=== PATIENT | female | born 1995 | race Caucasian/White ===

== ENCOUNTER → 2016-03-28 | Outpatient (CLI) | payer OTHER ==
[2016-03-28 15:55] LABS: CH 31.4; CHCM 33.9; HCT 38.3 % (34.0-46.0); HDW 2.69; HGB 12.3 gm/dL (11.4-16.0); MCH 29.9 pg (25.0-35.0); MCHC 32.2 g/dL (31.0-37.0); Mean Platelet Volume 10.3; RBC 4.12 m/uL (3.80-5.40); RDW 14.4 % (11.5-15.5); WBC 10.3 k/uL (3.8-10.6)
[2016-03-28 16:15] LABS: Glucose 75 mg/dL (74-99); Non-African American GFR(MDRD) >60 (>60 ml/min/1.73 sqM)
[2016-03-28 16:47] LABS: Hepatitis B Surface Ag Index 0.05
[2016-03-30 03:59] LABS: HIV-1/HIV-2 Ab Screen NONREAC (NON REAC)
== END | disposition home or self-care (01) ==
LOC: LABWHC1 15:08
PROVIDERS: ATTEND Obstetrics & Gynecology
DX: O26.812 Pregnancy related exhaustion and fatigue, second trimester (principal); Z3A.00 Weeks of gestation of pregnancy not specified
CPT/HCPCS: 36415; 82565; 82947; 85027; 86762; 86780; 86850; 86900; 86901; 87340; 87389

== ENCOUNTER 2016-05-15 17:11 | Emergency (ER) | payer OTHER ==
[2016-05-15 17:15] VITALS: RESP 16
[2016-05-15] MEDS ORDERED: METOCLOPRAMIDE 5 MG/ML 2 ML VIAL IVP STA (18:50)
[2016-05-15] MEDS ORDERED: SODIUM CHLORIDE 0.9% 1,000 ML IV ONE (18:50)
--- NOTE | 2016-05-15 18:53 | ED ---
Nausea/Vomiting/Diarrhea HPI - General Chief complaint: Nausea/Vomiting/Diarrhea Stated complaint: vomiting (29 weeks gestation) Time Seen by Provider: 05/15/16 18:43 Source: patient, RN notes reviewed Mode of arrival: ambulatory Limitations: no limitations - History of Present Illness Initial comments: Patient is , 20-year-old female presents to the emergency room for evaluation of vomiting and diarrhea. Patient states around 1:00 this afternoon she began vomiting. Patient states she has been unable to keep any food or liquids down. Patient states she is about 29 weeks . Patient denies any complications during . Patient states she can still feel her baby moving. Patient denies abnormal vaginal discharge or vaginal bleeding. Patient denies abdominal pain. Patient denies recent travel outside of the country. Patient denies trying new foods. Patient states she had a few episodes of diarrhea today as well. Patient denies any fevers or chills. - Related Data Previous Rx's Medication Instructions Recorded Metoclopramide HCl [Reglan] 5 mg PO TID PRN #12 tablet 05/15/16 Allergies Allergy/AdvReac Type Severity Reaction Status Date / Time No Known Allergies Allergy Verified 05/15/16 18:47 Review of Systems ROS Statement: Those systems with pertinent positive or pertinent negative responses have been documented in the HPI. ROS Other: All systems not noted in ROS Statement are negative. Past Medical History Past Medical History: Asthma, Thyroid Disorder History of Any Multi-Drug Resistant Organisms: None Reported Past Surgical History: Appendectomy, Tonsillectomy Additional Past Surgical History / Comment(s): thyroid, breast cyst removed, Past Anesthesia/Blood Transfusion Reactions: No Reported Reaction Past Psychological History: No Psychological Hx Reported Smoking Status: Never smoker Past Alcohol Use History: None Reported Past Drug Use History: None Reported - Past Family History Mother Family Medical History: No Reported History General Exam - General Exam Comments Initial Comments: Sitting in exam room in no acute distress. Limitations: no limitations General appearance: alert, in no apparent distress Head exam: Present: atraumatic, normocephalic, normal inspection Eye exam: Present: normal appearance ENT exam: Present: normal exam Neck exam: Present: normal inspection Respiratory exam: Present: normal lung sounds bilaterally. Absent: respiratory distress Cardiovascular Exam: Present: regular rate, normal rhythm, normal heart sounds GI/Abdominal exam: Present: soft. Absent: tenderness, guarding Extremities exam: Present: normal inspection Back exam: Present: normal inspection Neurological exam: Present: alert, oriented X3, CN II-XII intact, normal gait Psychiatric exam: Present: normal affect, normal mood Skin exam: Present: warm, dry, intact, normal color. Absent: rash Course Vital Signs 05/15/16 05/15/16 17:13 20:40 Temperature 98.2 F 98.8 F Pulse Rate 61 72 Respiratory 16 16 Rate Blood Pressure 131/76 103/60 O2 Sat by Pulse 100 100 Oximetry Medical Decision Making - Medical Decision Making Patient is a 20-year-old female, presents the emergency room for evaluation of nausea, vomiting. Patient states she's feeling better after fluids and medications. Labs show no significant findings. Patient states she is feeling better like to be discharged home. heart tones 125-145 bpm. Return parameters discussed. Case discussed with Dr. Garcia. - Lab Data Result diagrams: 05/15/16 19:00 05/15/16 19:00 Lab Results 05/15/16 05/15/16 05/15/16 Range/Units 19:00 19:00 19:00 WBC 8.0 (3.8-10.6) k/uL RBC 3.89 (3.80-5.40) m/uL Hgb 12.1 (11.4-16.0) gm/dL Hct 36.0 (34.0-46.0) % MCV 92.4 (80.0-100.0) fL MCH 31.0 (25.0-35.0) pg MCHC 33.6 (31.0-37.0) g/dL RDW 14.0 (11.5-15.5) % Plt Count 188 (150-450) k/uL Neutrophils % 82 % Lymphocytes % 11 % Monocytes % 5 % Eosinophils % 0 % Basophils % 0 % Neutrophils # 6.6 (1.3-7.7) k/uL Lymphocytes # 0.9 L (1.0-4.8) k/uL Monocytes # 0.4 (0-1.0) k/uL Eosinophils # 0.0 (0-0.7) k/uL Basophils # 0.0 (0-0.2) k/uL Sodium 136 L (137-145) mmol/L Potassium 4.1 (3.5-5.1) mmol/L Chloride 105 (98-107) mmol/L Carbon Dioxide 23 (22-30) mmol/L Anion Gap 8 mmol/L BUN 9 (7-17) mg/dL Creatinine 0.52 (0.52-1.04) mg/dL Est GFR (MDRD) Af Amer >60 (>60 ml/min/1.73 sqM) Est GFR (MDRD) Non-Af >60 (>60 ml/min/1.73 sqM) Glucose 87 (74-99) mg/dL Calcium 8.5 (8.4-10.2) mg/dL Magnesium 1.9 (1.6-2.3) mg/dL Total Bilirubin 0.4 (0.2-1.3) mg/dL AST 26 (14-36) U/L ALT 27 (9-52) U/L Alkaline Phosphatase 78 (38-126) U/L Total Protein 6.7 (6.3-8.2) g/dL Albumin 3.7 (3.5-5.0) g/dL Amylase 82 (30-110) U/L Lipase 118 (23-300) U/L Urine Color Urine Appearance (Clear) Urine pH (5.0-8.0) Ur Specific [place] (1.001-1.035) Urine Protein (Negative) Urine Glucose (UA) (Negative) Urine Ketones (Negative) Urine Blood (Negative) Urine Nitrate (Negative) Urine Bilirubin (Negative) Urine Urobilinogen (<2.0) mg/dL Ur Leukocyte Esterase (Negative) Urine RBC (0-5) /hpf Urine WBC (0-5) /hpf Ur Squamous Epith Cells (0-4) /hpf Urine Bacteria (None) /hpf Urine Mucus (None) /hpf 05/15/16 Range/Units 19:00 WBC (3.8-10.6) k/uL RBC (3.80-5.40) m/uL Hgb (11.4-16.0) gm/dL Hct (34.0-46.0) % MCV (80.0-100.0) fL MCH (25.0-35.0) pg MCHC (31.0-37.0) g/dL RDW (11.5-15.5) % Plt Count (150-450) k/uL Neutrophils % % Lymphocytes % % Monocytes % % Eosinophils % % Basophils % % Neutrophils # (1.3-7.7) k/uL Lymphocytes # (1.0-4.8) k/uL Monocytes # (0-1.0) k/uL Eosinophils # (0-0.7) k/uL Basophils # (0-0.2) k/uL Sodium (137-145) mmol/L Potassium (3.5-5.1) mmol/L Chloride (98-107) mmol/L Carbon Dioxide (22-30) mmol/L Anion Gap mmol/L BUN (7-17) mg/dL Creatinine (0.52-1.04) mg/dL Est GFR (MDRD) Af Amer (>60 ml/min/1.73 sqM) Est GFR (MDRD) Non-Af (>60 ml/min/1.73 sqM) Glucose (74-99) mg/dL Calcium (8.4-10.2) mg/dL Magnesium (1.6-2.3) mg/dL Total Bilirubin (0.2-1.3) mg/dL AST (14-36) U/L ALT (9-52) U/L Alkaline Phosphatase (38-126) U/L Total Protein (6.3-8.2) g/dL Albumin (3.5-5.0) g/dL Amylase (30-110) U/L Lipase (23-300) U/L Urine Color Yellow Urine Appearance Clear (Clear) Urine pH 6.0 (5.0-8.0) Ur Specific [place] 1.025 (1.001-1.035) Urine Protein Trace H (Negative) Urine Glucose (UA) Negative (Negative) Urine Ketones Negative (Negative) Urine Blood Negative (Negative) Urine Nitrate Negative (Negative) Urine Bilirubin Negative (Negative) Urine Urobilinogen <2.0 (<2.0) mg/dL Ur Leukocyte Esterase Small H (Negative) Urine RBC 2 (0-5) /hpf Urine WBC 2 (0-5) /hpf Ur Squamous Epith Cells 3 (0-4) /hpf Urine Bacteria Few H (None) /hpf Urine Mucus Few H (None) /hpf Disposition Clinical Impression: Hyperemesis gravidarum Disposition: HOME SELF-CARE Condition: Good Instructions: Hyperemesis Gravidarum (ED) Additional Instructions: Drink plenty of fluids. Take Reglan as needed for nausea. Please follow-up with primary care provider or [facility] ANALYST in 1-2 days. If any new symptom arises or symptoms worsen, return to ER as soon as possible. Prescriptions: Metoclopramide HCl [Reglan] 5 mg PO TID PRN #12 tablet PRN Reason: Nausea Referrals: Dylan Grant MD [Primary Care Provider] - 1-2 days Time of Disposition: 20:10
[2016-05-15 19:12] LABS: Basophils % (A) 0 %; CH 31.3; Eosinophils % (A) 0 %; HDW 2.97; HGB 12.1 gm/dL (11.4-16.0); Luc % (Auto) 1; Lymphocytes # (A) 0.9 k/uL (1.0-4.8); Lymphocytes % (A) 11 %; MCHC 33.6 g/dL (31.0-37.0); MCV 92.4 fL (80.0-100.0); Mean Platelet Volume 9.1; Monocytes # (A) 0.4 k/uL (0-1.0); Monocytes % (A) 5 %; Neutrophils # (A) 6.6 k/uL (1.3-7.7); Neutrophils % (A) 82 %; RBC 3.89 m/uL (3.80-5.40); WBC (Perox) 8.05
[2016-05-15 19:23] LABS: ALT 27 U/L (9-52); AST 26 U/L (14-36); Alkaline Phosphatase 78 U/L (38-126); Amylase 82 U/L (30-110); Anion Gap 8 mmol/L; Appearance,Urine Clear (Clear); Bacteria,Urine Few /hpf; Bilirubin,Urine Negative (Negative); Blood Urea Nitrogen 9 mg/dL (7-17); Calcium 8.5 mg/dL (8.4-10.2); Carbon Dioxide 23 mmol/L (22-30); Chloride 105 mmol/L (98-107); Glucose 87 mg/dL (74-99); Glucose,Urine (UA) Negative (Negative); Ketones,Urine Negative (Negative); Leukocyte Esterase,Urine Small (Negative); Magnesium 1.9 mg/dL (1.6-2.3); Mucus,Urine Few /hpf; Nitrite,Urine Negative (Negative); Non-African American GFR(MDRD) >60 (>60 ml/min/1.73 sqM); Particle Count 10740; Potassium 4.1 mmol/L (3.5-5.1); Protein,Urine Trace (Negative); RBC,Urine 2 /hpf (0-5); Sodium 136 mmol/L (137-145); Specific Gravity,Urine 1.025 (1.001-1.035); Squamous Epithelial Cell,Urine 3 /hpf (0-4); Total Bilirubin 0.4 mg/dL (0.2-1.3); Total Protein 6.7 g/dL (6.3-8.2); UA Billing (MACRO vs. MICRO) MICRO; Urobilinogen,Urine <2.0 mg/dL (<2.0); WBC,Urine 2 /hpf (0-5)
[2016-05-15] MEDS ORDERED: ACETAMINOPHEN IV (For NPO) 1,000 MG in EMPTY BAG 1 BAG IVPB STA (20:08)
[2016-05-15 20:42] VITALS: BP 103/60; PULSE 72; TEMP 98.8
== END 2016-05-15 20:42 | disposition home or self-care (01) ==
LOC: EC 17:11
DX: O21.0 Mild hyperemesis gravidarum (principal); O99.89 Other specified diseases and conditions complicating pregnancy, childbirth and the puerperium; R19.7 Diarrhea, unspecified; Z3A.29 29 weeks gestation of pregnancy
CPT/HCPCS: 36415; 80053; 82150; 83690; 83735; 85025; 81001; 99284; 96365; 96375; 96361; J2765; J0131

== ENCOUNTER → 2016-05-23 | Outpatient (CLI) | payer OTHER ==
[2016-05-23 14:37] LABS: CH 31.3; CHCM 33.3; HCT 33.8 % (34.0-46.0); HDW 3.17; HGB 11.4 gm/dL (11.4-16.0); MCH 31.9 pg (25.0-35.0); MCHC 33.8 g/dL (31.0-37.0); MCV 94.4 fL (80.0-100.0); Mean Platelet Volume 10.3; RBC 3.58 m/uL (3.80-5.40); RDW 13.9 % (11.5-15.5); WBC 7.9 k/uL (3.8-10.6)
== END ==
LOC: LABWHC1 13:19
PROVIDERS: ATTEND Obstetrics & Gynecology
DX: Z34.82 Encounter for supervision of other normal pregnancy, second trimester (principal)
CPT/HCPCS: 36415; 82950; 85027

== ENCOUNTER → 2016-06-13 | Outpatient (CLI) | payer OTHER ==
--- NOTE | 2016-06-13 09:26 | US ---
EXAMINATION TYPE: US OB anatomy transabd DATE OF EXAM: 06/13/2016 8:52 AM COMPARISON: on PACS HISTORY: [id number] Large for dates third trimester Anatomy TECHNIQUE: Transabdominal (TA) EXAM MEASUREMENTS: GESTATIONAL AGE / DATING Dates by LMP: (31 weeks/4 days) EDC: 08/11/2016 Dates by Current Scan for: (32 weeks/6 days) EDC: 08/02/2016 SURVEY IUP: Single PLACENTA: Anterior PREVIA: No previa AMITA: 11.0 cm Normal CERVICAL LENGTH (transabdominal: norm > 3.0cm): 3.8 cm BIOMETRY PRESENTATION: Vertex LIE: Longitudinal BPD: 8.4 cm 33 weeks / 6 days HC: 30.4 cm 33 weeks / 6 days AC: 27.9 cm 32 weeks / 0 days FL: 6.1 cm 31 weeks / 5 days ESTIMATED WEIGHT IN GRAMS: 1926 grams ESTIMATED WEIGHT IN LBS/OZS: 4 lbs. 4 oz. WEIGHT PERCENTAGE BASED ON ESTABLISHED DATE: 60 % HC/AC: Normal FL/AC: Normal HEART RATE: 139 bpm RHYTHM: Normal ANATOMY SEEN (within normal limits): * Lateral Vent (< 1 cm) 0.6 cm * Cisterna Magna (< 1.1 cm) 0.5 cm * Cerebellum (varies with age) 3.8 cm Choroid Plexus (bilateral) Midline Falx Cavus Septi Pellucidi Four Chamber Heart Stomach Situs Nose / Lips Diaphragm Kidneys (bilateral) Bladder Three Vessel Cord Longitudinal Spine Transverse Spine ANATOMY SEEN (does not appear within normal limits): ANATOMY NOT SEEN: * Nuchal Fold (< 0.6 cm) cm Arms (bilateral) Legs (bilateral) Cord Insert Outflow tracts: LVOT/RVOT Live IUP measuring 32 weeks 6 days. Limited anatomy scan due to late gestational age. IMPRESSION: 1. Single intrauterine gestation estimated at 32 weeks 6 days gestation based on current ultrasound m easurements. This would have a calculated EDC of 08/02/2016. Correlate this with her physician establi shed EDC of 08/11/2016. Cardiac activity measures 139 bpm. 2. There is some limitation during portions of the examination due to the age and positio phillip.
== END | disposition home or self-care (01) ==
LOC: RADUSWWP 08:19
PROVIDERS: ATTEND Obstetrics & Gynecology
DX: O36.63X0 Maternal care for excessive fetal growth, third trimester, not applicable or unspecified (principal); Z3A.32 32 weeks gestation of pregnancy
CPT/HCPCS: 76811

== ENCOUNTER 2016-07-19 19:56 | Outpatient (CLI) | payer OTHER ==
[2016-07-19 21:51] VITALS: BP 118/85; PULSE 75; RESP 18; TEMP 96.7
== END 2016-07-19 21:23 | disposition home or self-care (01) ==
LOC: FBPOP 19:56
PROVIDERS: ATTEND Obstetrics & Gynecology
DX: O47.1 False labor at or after 37 completed weeks of gestation (principal); Z3A.38 38 weeks gestation of pregnancy
CPT/HCPCS: 59025; G0463; 99213

== ENCOUNTER 2016-07-24 17:15 | Outpatient (CLI) | payer OTHER ==
[2016-07-24 17:47] VITALS: BP 121/70; PULSE 57; RESP 18; TEMP 96.7
--- NOTE | 2016-07-24 23:18 | P.MSEPDOC ---
Presenting Problems - Arrival Data Date of Arrival on Unit: 07/24/16 Time of Arrival on Unit: 17:15 Mode of Transport: Ambulatory - Complaint OB-Reason for Admission/Chief Complaint: Possible Onset of Labor Comment: 1600 Medical History - Information : 2 Para: 1 Term: 1 : 0 Abortions: Spontaneous or Elective: 0 Number of Living Children: 1 - Gestational Age Expected Date of Delivery: 07/31/16 Gestational Age by CHAPARRITA (wks/days): 39 Weeks and 0 Days Review of Systems - Review of Systems Constitutional: No problems Breast: No problems ENT: No problems Cardiovascular: No problems Respiratory: No problems Gastrointestinal: No problems Genitourinary: No problems Musculoskeletal: No problems Neurological: No problems Skin: No problems Vital Signs - Temperature Temperature: 96.7 F Temperature Source: Temporal Artery Scan - Pulse Right Brachial Pulse Rate: 57 Pulse Assessment Method: Automatic Cuff - Respirations Respiratory Rate: 18 Oxygen Delivery Method: Room Air - Blood Pressure Right Arm Blood Pressure: 121/70 Blood Pressure Mean: 87 Blood Pressure Source: Automatic Cuff Medical Screen Scoring (Pre) - Cervical Exam Dilation: 1-3 cm = 1 Effacement: More than 50% = 2 Membranes: Intact - Uterine Contractions Frequency: > or = 36 weeks =2 Duration: > 40 seconds = 2 Intensity: N/A - Maternal Vital Signs Maternal Temperature: N/A Maternal Blood Pressure: N/A Signs of Preeclampsia: N/A Maternal Respirations: N/A - Maternal Trauma Maternal Trauma: N/A - Assessment Baseline FHR: 130 Heart Rate - NICHD Category: Category II (Indeterminate) = 3 NST: Reactive Position: N/A Station: N/A - Total Score Total Score (Pre): 10 - Level of Risk Level of Risk: High (10+) Physician Notification (Pre) - Physician Notified Physician Notified Date: 07/24/16 Physician Notified Time: 17:30 Spoke With: Jaron Paul Order Received: Yes - Notification Comment Comment: pt was 3-4 in office last visit, Dr. Salmeron states watch for one hour and recheck Medical Screen Scoring (Post) - Cervical Exam Dilation: 1-3 cm = 1 Effacement: More than 50% = 2 Membranes: Intact - Uterine Contractions Frequency: > 5 minutes apart = 1 Duration: > 40 seconds = 2 Intensity: N/A - Assessment Heart Rate - NICHD Category: Category I (Normal) = 0 - Total Score Total Score (Post): 6 - Post Treatment Level of Risk Post Treatment Level of Risk: Medium (6-9) Physician Notification (Post) - Physician Notified Physician Notified Date: 07/24/16 Physician Notified Time: 18:33 Spoke With: Jaron Paul Order Received: Yes - Notification Comment Comment: discharge to home with follow up appt this Sunday as scheduled Disposition - Disposition OB Disposition: Discharge to home, Written follow up instructions reviewed Discharge Date: 07/24/16 Discharge Time: 18:43 I agree with the RN Medical Screening Exam: Yes Risk & Benefit of care provided described in d/c instruction: Yes Diagnosis: PRIMARY INADEQUATE CONTRACTIONS
== END 2016-07-24 18:43 | disposition home or self-care (01) ==
LOC: FBPOP 17:15
PROVIDERS: ATTEND Obstetrics & Gynecology
DX: O62.0 Primary inadequate contractions (principal); Z3A.39 39 weeks gestation of pregnancy
CPT/HCPCS: 59025; G0463; 99213

== ENCOUNTER 2016-07-27 06:30 | Inpatient (IN) | payer OTHER ==
[2016-07-27] MEDS ORDERED: TERBUTALINE 1 MG/ML VIAL SQ PRN (07:05)
[2016-07-27] MEDS ORDERED: LIDOCAINE 1% (PF) 10 MG/ML (30 ML SDV) SQ PRN (07:05)
[2016-07-27] MEDS ORDERED: OXYTOCIN 10 UNIT/ML 1 ML VIAL IM PRN (07:05)
[2016-07-27] MEDS ORDERED: CARBOPROST TROMETHAMINE 250 MCG/ML 1 ML AMP IM PRN (07:05)
[2016-07-27] MEDS ORDERED: METHYLERGONOVINE 0.2 MG/ML 1 ML AMP IM PRN (07:05)
[2016-07-27] MEDS ORDERED: OXYTOCIN 20 UNITS/1000 ML NS 1,000 ML IV SCH (07:15)
[2016-07-27] MEDS ORDERED: LACTATED RINGERS 1,000 ML IV SCH (07:15)
[2016-07-27 07:18] VITALS: BMI 31.4
[2016-07-27 07:35] LABS: Basophils % (A) 0 %; CH 29.7; CHCM 33.4; Eosinophils # (A) 0.1 k/uL (0-0.7); Eosinophils % (A) 1 %; HCT 34.3 % (34.0-46.0); HDW 3.21; HGB 11.4 gm/dL (11.4-16.0); Luc # (Auto) 0.19; Luc % (Auto) 2; Lymphocytes # (A) 1.3 k/uL (1.0-4.8); Lymphocytes % (A) 15 %; MCH 29.7 pg (25.0-35.0); MCHC 33.2 g/dL (31.0-37.0); Mean Platelet Volume 9.2; Monocytes # (A) 0.4 k/uL (0-1.0); Monocytes % (A) 5 %; Neutrophils # (A) 6.7 k/uL (1.3-7.7); Neutrophils % (A) 77 %; RBC 3.84 m/uL (3.80-5.40); RDW 14.3 % (11.5-15.5); WBC 8.8 k/uL (3.8-10.6); WBC (Perox) 8.86
[2016-07-27 07:37] LABS: MCV 89.4 fL (80.0-100.0)
[2016-07-27] MEDS ORDERED: BUPIVACAINE (PF) 0.25% 30 ML VIAL ONE (10:27)
[2016-07-27] MEDS ORDERED: SODIUM CHLORIDE 0.9% 100 ML BAG ONE (10:27)
[2016-07-27] MEDS ORDERED: fentaNYL (PF) 50 MCG/ML 5 ML AMP ONE (10:27)
[2016-07-27] MEDS ORDERED: BUPIVACAINE (PF) 0.25% 25 ML, fentaNYL (PF) 200 MCG in SODIUM CHLORIDE 0.9% 71 ML EPIDURAL ONE (11:49)
[2016-07-27] MEDS ORDERED: ZOLPIDEM 5 MG TAB PO PRN (12:43)
[2016-07-27] MEDS ORDERED: HYDROCORTISONE 2.5% RECTAL CREAM 30 GM TUBE RECTAL PRN (12:43)
[2016-07-27] MEDS ORDERED: diphenhydrAMINE 25 MG CAP PO PRN (12:43)
[2016-07-27] MEDS ORDERED: diphenhydrAMINE 50 MG/ML 1 ML VIAL IVP PRN ×2 (12:43)
[2016-07-27] MEDS ORDERED: diphenhydrAMINE 50 MG CAP PO PRN (12:43)
[2016-07-27] MEDS ORDERED: BENZOCAINE/MENTHOL SPRAY 1 GM/SPRAY AEROSOL TOPICAL PRN (12:43)
[2016-07-27] MEDS ORDERED: WITCH HAZEL 1 EACH MED..PAD TOPICAL PRN (12:43)
[2016-07-27] MEDS ORDERED: SIMETHICONE 80 MG CHEWABLE PO PRN (12:43)
[2016-07-27] MEDS ORDERED: ACETAMINOPHEN TAB 325 MG TAB PO PRN (12:43)
[2016-07-27] MEDS ORDERED: LANOLIN CREAM 5 GM TUBE TOPICAL PRN (12:43)
[2016-07-27] MEDS ORDERED: Acetaminophen-Codeine 300-30mg TAB PO PRN ×2 (12:43)
--- NOTE | 2016-07-27 12:46 | P.HPOB ---
History of Present Illness H&P Date: 07/27/16 Chief Complaint: Intrauterine at term: Induction of labor Patient is a 21-year-old at 39 weeks gestation arise for induction of labor. She was dilated to 4 cm 90% effaced -2 station. Artificial rupture membranes was performed and clear fluid is noted. Plans for augmentation of labor with Pitocin. Her Precis course had otherwise been unremarkable and she was feeling well at this time she had no other significant problems or concerns. Pertinent labs include A+ blood type Rh antibody was negative, rubella immune and hepatitis B surface antigen RPR and HIV were also negative. On physical exam vital signs are stable and afebrile. Heart regular, lungs clear, extremities without pain. Pelvic exam as above. Abdomen soft gravid uterus is noted. heart tones 130s and reactive. Assessment intrauterine at 39 weeks. Plan expect spontaneous vaginal delivery. She plans to use an epidural for analgesia. Past Medical History Past Medical History: Thyroid Disorder History of Any Multi-Drug Resistant Organisms: None Reported Past Surgical History: Appendectomy, Tonsillectomy Additional Past Surgical History / Comment(s): thyroid, breast cyst removed, Past Anesthesia/Blood Transfusion Reactions: No Reported Reaction Past Psychological History: No Psychological Hx Reported Smoking Status: Never smoker Past Alcohol Use History: None Reported Past Drug Use History: None Reported - Past Family History Mother Family Medical History: No Reported History Medications and Allergies Home Medications Medication Instructions Recorded Confirmed Type No Known Home Medications [No 07/24/16 07/24/16 History Known Home Medications] Allergies Allergy/AdvReac Type Severity Reaction Status Date / Time No Known Allergies Allergy Verified 07/24/16 17:34 Exam Osteopathic Statement: *. No significant issues noted on an osteopathic structural exam other than those noted in the History and Physical/Consult. - Vital Signs Vital signs: Vital Signs Temp Pulse Resp BP 07/27/16 07:04 96.8 F L 78 14 122/85 Intake and Output 07/26/16 07/27/16 07/27/16 22:59 06:59 14:59 Other: Weight 83.915 kg Patient Weight 07/28/16 06:59 Weight 83.915 kg Results Result Diagrams: 07/27/16 07:15
--- NOTE | 2016-07-27 12:47 | P.PROBDLV ---
Vaginal Delivery Note - . Vaginal Delivery Note: Patient progressed complete and pushing with spontaneous vaginal delivery of a viable male over a midline episiotomy. Following delivery of the head from right occiput anterior position anterior and posterior shoulders were delivered with gentle downward upper traction followed by the remainder the baby. Mouth nares was then bulb suctioned and baby was placed on mother's abdomen where the umbilical cord was clamped and cut in usual fashion. Placenta was then delivered intact Pitocin was added to the IV. Inspection of the perineum and vagina revealed a midline episiotomy which was repaired in usual fashion and also a deep approximately 2 cm left vaginal wall laceration that was repaired in running fashion with 3-0 Vicryl. Once this was ablated and hemostasis was assured 3 interrupted 3-0 Vicryl sutures were placed at the vaginal introitus to bring the skin together. Once this was accomplished both mother and baby were noted to be stable. scores were 8 and 9 at one and 5 minutes respectively and the weight was 7 lbs. 3 oz.
[2016-07-27] MEDS: IBUPROFEN 600 MG TAB PO PRN (13:15)
[2016-07-27 22:40] VITALS: RESP 16
[2016-07-27] MEDS: SENNOSIDES-DOCUSATE SODIUM 1 EACH TAB PO SCH (22:41)
[2016-07-28] MEDS: IBUPROFEN 600 MG TAB PO PRN ×2 (00:01→14:08)
--- NOTE | 2016-07-28 08:29 | P.DS ---
Providers Date of admission: 07/27/16 06:41 Expected date of discharge: 07/28/16 Attending physician: Manuel Mujica Primary care physician: Dylan Rangel [facility] Course: Patient is doing very well this morning day 1. She is ambulating, voiding and she is tolerating her diet. She voices no complaints. She is requesting discharge home today. Vital signs are stable and afebrile. Heart regular, lungs clear, extremities without pain. Abdomen is soft uterus firm below the umbilicus and lochia is reported light. Assessment day 1. Plan discharged home follow me in 6 weeks. Prescription for Motrin was sent to the pharmacy. Patient Condition at Discharge: Good Plan - Discharge Summary New Discharge Prescriptions: Ibuprofen [Motrin] 600 mg PO Q6HR PRN #30 tab PRN Reason: Pain Discharge Medication List Ibuprofen [Motrin] 600 mg PO Q6HR PRN #30 tab 07/28/16 [Rx] Follow up Appointment(s)/Referral(s): Manuel Mujica DO [Doctor of Osteopathic Medicine] - 6 Weeks Activity/Diet/Wound Care/Special Instructions: No heavy lifting, limit stairs and driving, and pelvic rest. If any high temperatures, heavy bleeding, or severe pain call my office
[2016-07-28] MEDS: SENNOSIDES-DOCUSATE SODIUM 1 EACH TAB PO SCH (09:27)
[2016-07-28 09:30] VITALS: TEMP 97.9
[2016-07-28 12:44] VITALS: BP 112/72; PULSE 78
== END 2016-07-28 14:28 | disposition home or self-care (01) | DRG 775 ==
LOC: 4FBP 06:41
PROVIDERS: ADMIT Obstetrics & Gynecology; ATTEND Obstetrics & Gynecology
PROC: 10E0XZZ Delivery of Products of Conception, External Approach (ICD-10-PCS; principal; 2016-07-27)
PROC: 0KQM0ZZ Repair Perineum Muscle, Open Approach (ICD-10-PCS; 2016-07-27)
PROC: 0W8NXZZ Division of Female Perineum, External Approach (ICD-10-PCS; 2016-07-27)
PROC: 00HU33Z Insertion of Infusion Device into Spinal Canal, Percutaneous Approach (ICD-10-PCS; 2016-07-27)
PROC: 3E0R3CZ (ICD-10-PCS; 2016-07-27)
PROC: 3E033VJ Introduction of Other Hormone into Peripheral Vein, Percutaneous Approach (ICD-10-PCS; 2016-07-27)
PROC: 10907ZC Drainage of Amniotic Fluid, Therapeutic from Products of Conception, Via Natural or Artificial Opening (ICD-10-PCS; 2016-07-27)
DX: O71.4 Obstetric high vaginal laceration alone (principal); Z37.0 Single live birth; E07.9 Disorder of thyroid, unspecified; O99.284 Endocrine, nutritional and metabolic diseases complicating childbirth; Z3A.39 39 weeks gestation of pregnancy
CPT/HCPCS: 85025; 88307

== ENCOUNTER 2016-12-09 21:36 | Emergency (ER) | payer OTHER ==
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
[2016-12-09 23:08] VITALS: BP 121/66; PULSE 80; RESP 18; TEMP 98.2
--- NOTE | 2016-12-11 04:58 | CDI ---
Dear Elijah Sandoval MD: Please do addendum History of Present Illness, Physical Examination, and Medical Decision Making. Thank you, Mary Carmona, Expense Clerk. If you have any questions, please contact Gore Maker at [phone]. LILIAMD
== END 2016-12-09 23:10 | disposition home or self-care (01) ==
LOC: EC 21:36
DX: Z04.1 Encounter for examination and observation following transport accident (principal); V49.40XA Driver injured in collision with unspecified motor vehicles in traffic accident, initial encounter; Y92.410 Unspecified street and highway as the place of occurrence of the external cause
CPT/HCPCS: 99283

== ENCOUNTER 2020-05-25 06:23 | Day surgery (SDC) | payer OTHER ==
[2020-05-20 15:21] VITALS: BMI 29.1
--- NOTE | 2020-05-21 16:15 | P.HPOB ---
History of Present Illness H&P Date: 05/21/20 Chief Complaint: Family planning Patient is a 24-year-old who has completed her family planning and desires permanent sterilization. Risks/benefits/alternatives to this procedure were reviewed with the patient in detail all questions were answered for her prior to proceeding to the operative room. Risks did include but were not limited to bleeding and infection, damage to bladder or bowel, vascular injuries, nerve injuries, potential need further surgery. She is aware that this procedure is designed to be permanent she understands this is not designed to be reversed and does carry a small failure rate. Alternatives to this in various forms of control were also reviewed and she is adamant that she has her tubes tied. Past Medical History Past Medical History: Thyroid Disorder Additional Past Medical History / Comment(s): THYROID NODULES History of Any Multi-Drug Resistant Organisms: None Reported Past Surgical History: Appendectomy, Tonsillectomy Additional Past Surgical History / Comment(s): thyroid- nodules removed , breast cyst removed, Past Anesthesia/Blood Transfusion Reactions: No Reported Reaction Smoking Status: Never smoker - Past Family History Mother Family Medical History: No Reported History Medications and Allergies Home Medications Medication Instructions Recorded Confirmed Type Citalopram Hydrobromide [CeleXA] 20 mg PO DAILY 05/21/20 05/21/20 History Allergies Allergy/AdvReac Type Severity Reaction Status Date / Time No Known Allergies Allergy Verified 05/20/20 15:28 Exam Osteopathic Statement: *. No significant issues noted on an osteopathic structural exam other than those noted in the History and Physical/Consult. - OBG Physical Exam Breast: both: normal (no masses) Abdomen: bowel sounds normal, no diffuse tenderness, no bruit present, no guarding noted, no hepatomegaly, no splenomegaly, no mass Vulva: both: normal Vagina: normal moisture, no discharge Cervix: no lesion, no discharge Uterus: normal size, normal contour Adnexa: both: normal Anus/Rectum: normal perianal skin, no rectal mass, no hemorrhoids, heme negative
[~2020-05-25 06:23] MED LIST: DEXAMETHASONE SOD PHOSPHATE 4 MG/ML 1 ML VIAL IV ONE; LACTATED RINGERS 1,000 ML IV SCH; LIDOCAINE 1% (10MG/ML) FOR IV START INTRADERMA PRN; MIDAZOLAM 2 MG/2 ML VIAL IV PRN; ONDANSETRON 4 MG/2 ML VIAL IVP ONE; Pre Op ABX Message 1 EACH MISC MISCELLANE ONE
[2020-05-25] MEDS ORDERED: LACTATED RINGERS 1,000 ML IV ONE ×2 (06:56→09:17)
[2020-05-25] MEDS ORDERED: HYDROmorphone 0.5 MG/0.5 ML SYRINGE IVP PRN (07:00)
[2020-05-25] MEDS ORDERED: GLYCOPYRROLATE 0.2 MG/ML 2 ML VIAL ONE (07:36)
[2020-05-25] MEDS ORDERED: PROPOFOL 10 MG/ML 20 ML VIAL IV ONE (07:36)
[2020-05-25] MEDS ORDERED: ROCURONIUM 10 MG/ML (5 ML VIAL) IV ONE (07:36)
[2020-05-25] MEDS ORDERED: LIDOCAINE 1% INJ 10MG/ML (20 ML MDV) ONE (07:36)
[2020-05-25] MEDS ORDERED: fentaNYL (PF) 50 MCG/ML 2 ML AMP ONE (07:36)
[2020-05-25] MEDS ORDERED: MIDAZOLAM 2 MG/2 ML VIAL ONE (07:36)
[2020-05-25] MEDS ORDERED: KETOROLAC 15 MG/ML 1 ML VIAL ONE (07:36)
[2020-05-25] MEDS ORDERED: NEOSTIGMINE 1 MG/ML 10 ML VIAL ONE (07:36)
[2020-05-25] MEDS ORDERED: HYDROmorphone (PF) 1 MG/ML ONE (07:36)
[2020-05-25] MEDS ORDERED: BUPIVACAINE (PF) 0.25% 30 ML VIAL SQ ONE ×2 (08:00)
--- NOTE | 2020-05-25 08:24 | P.OP ---
Date of Procedure: 05/25/20 Preoperative Diagnosis: Family planning Postoperative Diagnosis: Same Procedure(s) Performed: Laparoscopic tubal ligation with Filshie clips Anesthesia: KECIA Surgeon: Manuel Mujica Estimated Blood Loss (ml): 3 IV fluids (ml): 200 Urine output (ml): 40 Pathology: none sent Condition: stable Disposition: same day Operative Findings: Normal female pelvic anatomy Description of Procedure: Patient was taken to the operating suite where general anesthetic was found be adequate. She was prepped and draped in the normal sterile fashion placed in dorsal lithotomy position. Initially a speculum was inserted in the vagina and the anterior lip of cervix identified and grasped with an Allis clamp. He was then sounded to 8 cm and a manipulator was inserted without difficulty. Other instruments were then removed and a red rubber cath was used to clamp the bladder of urine. Once this was completed gloves were changed and attention was turned to the abdominal portion procedure where 2 mL of quarter percent Marcaine was injected periumbilically. Through this injected anesthetic a 5 mm skin incision was made. Through this incision then, with an optical trocar and sleeve, the camera was inserted. Once peritoneal planes was assured gas was allowed to fully insufflate the abdomen and patient was then placed in steep Trendelenburg position. A second 8 mm skin incision was then made 2 cm above the pubic symphysis in the midline and this was inserted under direct visualization. Once completed uterus was elevated and observations pelvis were noted. First the right fallopian tube than the left fallopian tube had a Filshie clip applied 2 cm from uterine cornu. With no bleeding noted the mesosalpinx, instruments were removed and gas was allowed to expel from the abdomen. 5 deep breaths were provided during this process. 4-0 Vicryl was then used to close incision subcuticularly and the remaining 8 mL of quarter percent Marcaine was injected around these incisions. Instruments were then removed from vagina. Sponge, lap, needle counts were all correct 2. Patient was then taken to the recovery room in stable and satisfactory condition. Plan - Discharge Summary Discharge Rx Participant: Yes New Discharge Prescriptions: New Ibuprofen [Motrin] 600 mg PO Q6HR PRN #30 tab PRN Reason: Pain HYDROcodone/APAP 5-325MG [[place] 5-325] 1 tab PO Q4HR PRN #30 tab PRN Reason: Pain No Action Citalopram Hydrobromide [CeleXA] 20 mg PO DAILY Discharge Medication List Citalopram Hydrobromide [CeleXA] 20 mg PO DAILY 05/21/20 [History] HYDROcodone/APAP 5-325MG [[place] 5-325] 1 tab PO Q4HR PRN #30 tab 05/25/20 [Rx] Ibuprofen [Motrin] 600 mg PO Q6HR PRN #30 tab 05/25/20 [Rx] Follow up Appointment(s)/Referral(s): Manuel Mujica DO [Doctor of Osteopathic Medicine] - 1 Week Activity/Diet/Wound Care/Special Instructions: Heavy lifting, limit stairs and driving, and pelvic rest. If any high temperatures, heavy bleeding, or severe pain call my office Discharge Disposition: HOME SELF-CARE
[2020-05-25 08:34] VITALS: TEMP 97.1
[2020-05-25] MEDS: MEPERIDINE 50 MG/ML SYRINGE IVP ONE ×2 (08:34→08:44)
[2020-05-25 09:06] VITALS: RESP 16
[2020-05-25 09:46] VITALS: BP 124/83; PULSE 74
[2020-05-25] MEDS ORDERED: HYDROcodone/APAP 5-325MG 1 EACH TAB ONE (09:55)
== END 2020-05-25 10:25 | disposition home or self-care (01) ==
LOC: OR 06:23
PROVIDERS: ATTEND Obstetrics & Gynecology
DX: Z30.2 Encounter for sterilization (principal)
CPT/HCPCS: 81025; 58671; J2250; J1100; J2710; J2175; J2405; J2001; J3010; J1170; J1885; J2704

== ENCOUNTER 2020-07-30 13:20 | Emergency (ER) | payer OTHER ==
[2020-07-30 14:14] VITALS: TEMP 98.2
[2020-07-30] MEDS ORDERED: KETOROLAC 15 MG/ML 1 ML VIAL IVP STA (15:14)
[2020-07-30 15:50] VITALS: RESP 16
[2020-07-30 15:54] LABS: Basophils % (A) 1 %; Eosinophils # (A) 0.1 k/uL (0-0.7); Eosinophils % (A) 2 %; HCT 37.2 % (34.0-46.0); HGB 12.7 gm/dL (11.4-16.0); Lymphocytes # (A) 1.4 k/uL (1.0-4.8); Lymphocytes % (A) 22 %; MCH 31.4 pg (25.0-35.0); MCHC 34.2 g/dL (31.0-37.0); MCV 91.6 fL (80.0-100.0); Mean Platelet Volume 10.1; Monocytes # (A) 0.4 k/uL (0-1.0); Monocytes % (A) 6 %; Neutrophils # (A) 4.3 k/uL (1.3-7.7); Neutrophils % (A) 67 %; Platelet Count 189 k/uL (150-450); RBC 4.06 m/uL (3.80-5.40); RDW 12.9 % (11.5-15.5); WBC 6.4 k/uL (3.8-10.6)
[2020-07-30 16:03] LABS: ALT 82 U/L (4-34); AST 53 U/L (14-36); African American GFR (CKD) >90 (>60 ml/min/1.73 sqM); Albumin 4.3 g/dL (3.5-5.0); Alkaline Phosphatase 65 U/L (38-126); Anion Gap 7 mmol/L; Blood Urea Nitrogen 10 mg/dL (7-17); Calcium 9.4 mg/dL (8.4-10.2); Carbon Dioxide 26 mmol/L (22-30); Chloride 106 mmol/L (98-107); Glucose 112 mg/dL (74-99); Non-African American GFR(CKD) >90 (>60 ml/min/1.73 sqM); Potassium 4.2 mmol/L (3.5-5.1); Sodium 139 mmol/L (137-145); Total Bilirubin 0.2 mg/dL (0.2-1.3); Total Protein 6.8 g/dL (6.3-8.2)
[2020-07-30 16:05] LABS: D-Dimer 0.22 mg/L FEU (<0.60); Partial Thromboplastin Time 22.3 sec (22.0-30.0); Prothrombin Time 10.8 sec (9.0-12.0)
--- NOTE | 2020-07-30 16:15 | XR ---
EXAMINATION TYPE: XR chest 2V DATE OF EXAM: 07/30/2020 COMPARISON: NONE HISTORY: Chest pain TECHNIQUE: Frontal and lateral views of the chest are obtained. FINDINGS: There is no focal air space opacity. No evidence for pneumothorax. No pleural effusion. The cardiac silhouette size is within normal limits. The osseous structures are grossly intact. IMPRESSION: 1. No acute cardiopulmonary process.
--- NOTE | 2020-07-30 17:02 | ED ---
Chest Pain HPI - General Chief Complaint: Chest Pain Stated Complaint: Chest Pain,cough Time Seen by Provider: 07/30/20 15:07 Source: patient Mode of arrival: ambulatory Limitations: no limitations - History of Present Illness Initial Comments: This 25-year-old female presents complaining of some left upper chest pain. She states that it is reproducible upon palpation and with certain movements. It is been present for approximately one week. She has had a mild nonproductive cough as well. She denies any fevers or chills. She denies any injury to the area. She denies any previous similar incidents. She denies any possibility of as she has had a tubal ligation. There is no leg pain or swelling or history of DVT or PE. She denies any previous cardiac history. No other complaints or modifying factors. She relates that she was seen at [facility] ER 2 days ago and they did an EKG and chest x-ray which was negative. - Related Data Home Medications Medication Instructions Recorded Confirmed Citalopram Hydrobromide [CeleXA] 20 mg PO DAILY 05/21/20 07/30/20 Allergies Allergy/AdvReac Type Severity Reaction Status Date / Time No Known Allergies Allergy Verified 07/30/20 16:43 Review of Systems ROS Statement: Those systems with pertinent positive or pertinent negative responses have been documented in the HPI. ROS Other: All systems not noted in ROS Statement are negative. Past Medical History Past Medical History: Thyroid Disorder Additional Past Medical History / Comment(s): THYROID NODULES History of Any Multi-Drug Resistant Organisms: None Reported Past Surgical History: Appendectomy, Tonsillectomy Additional Past Surgical History / Comment(s): thyroid- nodules removed , breast cyst removed, Past Anesthesia/Blood Transfusion Reactions: No Reported Reaction Past Psychological History: Anxiety, Depression Smoking Status: Never smoker Past Alcohol Use History: None Reported Past Drug Use History: None Reported - Past Family History Mother Family Medical History: No Reported History General Exam - General Exam Comments Initial Comments: GENERAL: The patient is well nourished and well hydrated. VITAL SIGNS: Heart rate, blood pressure, respiratory rate reviewed as recorded in nurse's notes. EYES: Pupils are round and reactive. Extraocular movements are intact. No conjunctival / lid redness or swelling. ENT: No external evidence of injury, swelling, or ecchymosis. Airway is patent. Throat is clear. NECK: Nontender. No swelling or evidence of injury. No subcutaneous emphysema. Trachea is midline. No thyroid mass. HEART: Regular rate and rhythm. Good peripheral pulses. LUNGS/CHEST: Breath sounds clear and equal bilaterally. No rales, rhonchi, or wheezes. Mild tenderness upon palpation of the left upper chest wall anteriorly. ABDOMEN: Abdomen soft without tenderness. No palpable masses or organomegaly. No peritoneal signs. No abdominal wall swelling or ecchymosis. EXTREMITIES: No extremity tenderness. Normal muscle tone and function. No thoracolumbar tenderness. NEUROLOGIC: Sensation is grossly intact. Cranial nerve exam reveals face is symmetrical, tongue is midline, speech is clear. SKIN: No abrasions or ecchymosis is noted. No induration or masses noted. PSYCHIATRIC: Alert and oriented. Appropriate behavior and judgment. Limitations: no limitations Course Vital Signs 07/30/20 07/30/20 07/30/20 14:10 15:42 15:46 Temperature 98.2 F Pulse Rate 77 73 Respiratory 18 16 Rate Blood Pressure 120/82 117/83 O2 Sat by Pulse 100 100 97 Oximetry 07/30/20 07/30/20 07/30/20 16:00 16:30 17:00 Temperature Pulse Rate 60 59 L 67 Respiratory Rate Blood Pressure 111/78 106/69 103/65 O2 Sat by Pulse 99 98 99 Oximetry Chest Pain MDM - MDM The patient was seen and examined. All diagnostics were reviewed. She is requesting a covid test and this is done and is negative. The chest x-ray does not show any acute process. The laboratory analysis is essentially unremarkable with a negative d-dimer and negative troponin. The EKG shows a normal sinus rhythm at a rate of 67. There is no acute ST-T wave changes identified. The MA intervals 132, QRS duration is 84, and the QTC intervals 414. The exact cause of her symptomatology is not definitively determine but it is felt likely that it could be related to musculoskeletal chest wall pain is especially in light of the reproducible aspect. In addition, it potentially could be related to a pleuritis. Nevertheless, it is felt as though she is stable for discharge. She is instructed to utilize Tylenol or Motrin. Return parameters discussed. Close follow-up recommended. Disposition Clinical Impression: Chest pain Disposition: HOME SELF-CARE Condition: Good Instructions (If sedation given, give patient instructions): Chest Wall Pain (ED) Additional Instructions: Please use Tylenol and/or Motrin as needed for pain. Is patient prescribed a controlled substance at d/c from ED?: No Referrals: Dylan Grant MD [Primary Care Provider] - 1-2 days Time of Disposition: 17:12
[2020-07-30 17:58] VITALS: BP 102/68; PULSE 64
== END 2020-07-30 17:56 | disposition home or self-care (01) ==
LOC: EC 13:20
DX: R07.89 Other chest pain (principal); R05 Cough; F41.9 Anxiety disorder, unspecified; F32.9 Major depressive disorder, single episode, unspecified; Z20.822 Contact with and (suspected) exposure to COVID-19
CPT/HCPCS: 36415; 93005; 85379; 80053; 83735; 84484; 85025; 85610; 85730; 87635; 71046; 99285; 96374; J1885

== ENCOUNTER → 2022-03-16 | Outpatient (CLI) | payer OTHER ==
[2022-03-17 04:56] LABS: Herpes simplex I and/or II IgM 0.69 INDEX (<=0.90); Herpes simplex IgG I Ab 0.05 (< or = 0.90); Herpes simplex IgG II Ab 0.15 (< or = 0.90)
== END | disposition home or self-care (01) ==
LOC: LABWHC1 09:45
PROVIDERS: ATTEND Internal Medicine
DX: Z11.3 Encounter for screening for infections with a predominantly sexual mode of transmission (principal); R53.83 Other fatigue
CPT/HCPCS: 36415; 86694; 86695; 86696